=== PATIENT | female | born 1990 | race Caucasian/White ===

== ENCOUNTER 2017-05-29 11:48 | Emergency (ER) | payer BC ==
[2017-05-29 12:09] VITALS: BP 114/56
--- NOTE | 2017-05-29 12:33 | UC ---
Complaint Female HPI - HPI Summary HPI Summary: 2 days of pain urgency and frequency - History Of Current Complaint Chief Complaint: UCGU Stated Complaint: URINARY ISSUE Time Seen by Provider: 05/29/17 12:20 Hx Obtained From: Patient ?: No Onset/Duration: Sudden Onset, Lasting Days - 2 Timing: Constant Severity Initially: Mild Severity Currently: Mild Character: Burning Aggravating Factor(s): Urination Alleviating Factor(s): Nothing Associated Signs And Symptoms: Positive: Negative - Allergies/Home Medications Allergies/Adverse Reactions: Allergies Allergy/AdvReac Type Severity Reaction Status Date / Time Ibuprofen Allergy Swelling Verified 05/29/17 12:09 Of Face,Lips,& Throat Penicillins Allergy Hives Verified 05/29/17 12:09 Home Medications: Home Medications Famotidine TAB* [Pepcid 20 MG TAB*] 20 mg PO BID PRN 05/29/17 [History Confirmed 05/29/17] Vitamin TAB* 1 tab PO DAILY 05/29/17 [History Confirmed 05/29/17] PMH/Surg Hx/FS Hx/Imm Hx Previously Healthy: No GI/ History: Gastroesophageal Reflux - Surgical History Surgical History: None - Family History Known Family History: Positive: None - Social History Occupation: Employed Full-time Lives: With Family Alcohol Use: None Substance Use Type: None Smoking Status (MU): Never Smoked Tobacco Review of Systems Constitutional: Negative Skin: Negative Eyes: Negative ENT: Negative Respiratory: Negative Cardiovascular: Negative Gastrointestinal: Negative Genitourinary: Hematuria, Frequency, Urgency Motor: Negative Neurovascular: Negative Musculoskeletal: Negative Neurological: Negative Psychological: Negative Is Patient Immunocompromised?: No All Other Systems Reviewed And Are Negative: Yes Physical Exam Triage Information Reviewed: Yes Appearance: Well-Appearing, No Pain Distress, Well-Nourished Vital Signs: Initial Vital Signs Temp 98.5 F 05/29/17 12:05 Pulse 86 05/29/17 12:05 Resp 18 05/29/17 12:05 BP 114/56 05/29/17 12:05 Pulse Ox 99 05/29/17 12:05 Vital Signs Reviewed: Yes Eye Exam: Normal Eyes: Positive: Conjunctiva Clear ENT Exam: Normal ENT: Positive: Normal ENT inspection, Hearing grossly normal. Negative: Trismus , Muffled voice, Hoarse voice Dental Exam: Normal Neck exam: Normal Neck: Positive: Supple, Nontender Respiratory Exam: Normal Respiratory: Positive: Chest non-tender, No respiratory distress, No accessory muscle use Cardiovascular Exam: Normal Cardiovascular: Positive: RRR, Brisk Capillary Refill Abdominal Exam: Normal Abdomen Description: Positive: Nontender, No Organomegaly, Soft. Negative: CVA Tenderness (R), CVA Tenderness (L) Bowel Sounds: Positive: Present Musculoskeletal Exam: Normal Musculoskeletal: Positive: Strength Intact, ROM Intact, No Edema Neurological Exam: Normal Neurological: Positive: Alert, Muscle Tone Normal Psychological Exam: Normal Skin Exam: Normal Diagnostics - Laboratory Diagnostic Studies Completed/Ordered: +1 leukoesterace Complaint Female Dx - Course Course Of Treatment: culture urine start macrobid increase fluids follow with pcp - Differential Dx/Diagnosis Provider Diagnoses: UTI Discharge - Discharge Plan Condition: Stable Disposition: HOME Prescriptions: Nitrofurantoin Monohyd Macro [Macrobid] 100 mg PO BID #10 cap Patient Education Materials: Urinary Tract Infection in (ED) Referrals: [facility] [Provider Group] (as planned)
--- NOTE | 2017-05-31 10:56 | UC ---
Progress - Progress Note Progress Note: Pt with no growth to urine on culture Pt recommended to follow-up with clerk entry level no change to management bo 05/31/17
== END 2017-05-29 13:27 | disposition home or self-care (01) ==
LOC: UCEAST 11:48
DX: N39.9 Disorder of urinary system, unspecified (principal); N39.0 Urinary tract infection, site not specified; R31.9 Hematuria, unspecified; Z88.6 Allergy status to analgesic agent; Z88.0 Allergy status to penicillin; K21.9 Gastro-esophageal reflux disease without esophagitis
CPT/HCPCS: 81003; 87086; 99212; G0463

== ENCOUNTER 2017-07-24 21:03 | Inpatient (IN) | payer BC ==
[2017-07-25] MEDS ORDERED: Witch Hazel PAD* JAR TOPICAL PRN (02:09)
[2017-07-25] MEDS ORDERED: Dibucaine 1% 28.35 GM TUBE PR PRN (02:09)
[2017-07-25] MEDS ORDERED: Acetaminophen TAB* 325 MG PO PRN (02:09)
[2017-07-25] MEDS: Docusate CAP* 100 MG PO SCH ×2 (09:06→22:03)
--- NOTE | 2017-07-25 20:44 | PTEDU ---
Patient Name: ROBERT NELSON ROBERT NELSON selected video: Never Ever Shake a Baby to view on 07[facility]25[facility]2017 at 8:43:30 [id number]
--- NOTE | 2017-07-25 22:14 | PTEDU ---
Patient Name: ROBERT NELSON ROBERT NELSON selected video: BBOB: Nurturing Your Gorgeous &Growing Baby by to view on 07/25/2017 at 10:13:12 [id number]
[2017-07-26] MEDS: Docusate CAP* 100 MG PO SCH ×4 (08:21→20:51)
[2017-07-26] MEDS ORDERED: Ferrous Gluconate TAB* 324 MG TAB PO SCH (09:00)
[2017-07-26 10:22] LABS: ABS Basophils 0 10^3/ul (0-0.2); ABS Eosinophils 0.1 10^3/ul (0-0.6); ABS Lymphocytes 1.9 10^3/ul (1.0-4.8); ABS Monocytes 0.7 10^3/ul (0-0.8); ABS Neutrophils 8.2 10^3/ul (1.5-7.7); ABS Nucleated RBC 0 10^3/ul; Eosinophil % 1.1 % (0-6); Hematocrit 36 % (35-47); Hemoglobin 12.2 g/dl (12.0-16.0); Lymphocyte % 17.3 % (25-47); Mean Corpuscular HGB Conc 34 g/dl (31-36); Mean Corpuscular Hemoglobin 31 pg (27-31); Mean Corpuscular Volume 92 fL (80-97); Mean Platelet Volume 9 um3 (7.4-10.4); Nucleated Red Blood Cells % 0.1; Platelet Count 184 10^3/ul (150-450); Red Blood Count 3.91 10^6/ul (4.0-5.4); Red Cell Distribution Width 13 % (10.5-15); White Blood Count 10.9 10^3/ul (3.5-10.8)
--- NOTE | 2017-07-26 12:04 | PTEDU ---
Patient Name: ROBERT NELSON ROBERT NELSON selected video: Follow Me Mum: The [facility] to Successful to view on 8 at 12:03:46 PM [id number]
[2017-07-27 08:24] VITALS: BP 108/64
[2017-07-27] MEDS: Docusate CAP* 100 MG PO SCH (08:33)
--- NOTE | 2017-07-27 09:59 | PTEDU ---
Patient Name: ROBERT NELSON ROBERT NELSON selected video: BBOB: Bonding Through Massage to view on 07/27/2017 at 9:58:03 A [id number]
[2017-07-27] MEDS ORDERED: RHO D Immune Globulin (HUMAN)* 300 MCG = 1,500 I.U. INJ IM ONE (11:01)
== END 2017-07-27 13:58 | disposition home or self-care (01) | DRG 560 ==
LOC: MCHOBOUT 21:03 → MCHOB 22:08
PROVIDERS: ADMIT Midwife; ATTEND Midwife
PROC: 10E0XZZ Delivery of Products of Conception, External Approach (ICD-10-PCS; principal; 2017-07-25)
PROC: 0KQM0ZZ Repair Perineum Muscle, Open Approach (ICD-10-PCS; 2017-07-25)
DX: O48.0 Post-term pregnancy (principal); O70.1 Second degree perineal laceration during delivery; Z3A.40 40 weeks gestation of pregnancy; Z37.0 Single live birth
CPT/HCPCS: 36415; 85025; 85461; 86900; 86901; A9270-GY; J2790